=== PATIENT | female | born 1970 | race American Indian/Alaskan Native ===

== ENCOUNTER 2021-02-25 02:24 | Inpatient (IN) | payer BC, OTHER ==
[2021-02-25 03:13] LABS: Hematocrit 29.9 % (30.3-42.9); Hemoglobin 9.7 gm/dl (10.1-14.3); Mean Corpuscular HGB Conc 32 % (30-34); Mean Corpuscular Volume 83 fl (79-97); Platelet Count 392 K/mm3 (140-440)
[2021-02-25 03:17] LABS: Basophils % (Auto) 0.9 % (0.0-1.8); Eosinophils # (Auto) 0.1 K/mm3 (0.0-0.4); Eosinophils % (Auto) 1.6 % (0.0-4.3); Lymphocytes # (Auto) 1.4 K/mm3 (1.2-5.4); Monocytes # (Auto) 0.4 K/mm3 (0.0-0.8); Monocytes % (Auto) 11.7 % (0.0-7.3)
[2021-02-25 03:36] LABS: Albumin 3.1 g/dL (3.9-5); Calcium 8.1 mg/dL (8.4-10.2)
--- NOTE | 2021-02-25 03:47 | XRay Report ---
CHEST 1 VIEW INDICATION / CLINICAL INFORMATION: Chest pain, all over body pain. COMPARISON: None available. FINDINGS: SUPPORT DEVICES: Vas-Cath present with tip in the expected location of the SVC. HEART / MEDIASTINUM: Heart size is borderline enlarged. LUNGS / PLEURA: There is minimal interstitial pulmonary edema with very small left pleural effusion. The lungs are otherwise grossly clear. No pneumothorax. ADDITIONAL FINDINGS: Vascular stent is present in the mediastinum IMPRESSION: 1. Borderline cardiomegaly with minimal interstitial pulmonary edema and very small left pleural effu yudi. Signer Name: Georgia Colon MD Signed: 02/25/2021 3:43 AM Workstation Name: [id number]
[2021-02-25 03:51] LABS: Chol/HDL Ratio 2.78 %
[2021-02-25] MEDS ORDERED: ONDANSETRON 4 MG/2 ML INJ IV ONE (04:44)
[2021-02-25] MEDS ORDERED: MORPHINE 4 MG/1 ML INJ IV ONE (04:44)
[2021-02-25] MEDS ORDERED: oxyCODONE /ACETAMINOPHEN 5-325MG TAB PO ONE (04:44)
--- NOTE | 2021-02-25 04:56 | Emergency Department Report ---
ED N/V/D HPI - General Chief complaint: Pain General Stated complaint: GENERAL PAIN ALL OVER Time Seen by Provider: 02/25/21 04:33 Source: patient, EMS Mode of arrival: Wheelchair Limitations: No Limitations - History of Present Illness Initial comments: CC: " I am a new dialysis patient. I have bone pain. I have been vomiting. I have been unable to keep down my medication." HPI: This is a 42-year-old female with history of hypertension, congestive heart failure, end-stage renal disease on dialysis who presents with severe generalized pain for the past 2 days. She also has had nausea vomiting. She has been unable to tolerate her home medication. She takes oxycodone 10 for generalized pain related to dialysis. Patient started hemodialysis in September. 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 She receives hemodialysis at [facility]. She is currently on Eliquis. complaint: nausea, vomiting, other (Generalized "bone pain") -: Gradual, days(s) (2 days) Description of Vomiting: food contents Associated Abdominal Pain: No Severity: severe Quality: other (Achy bone pain) Consistency: constant Improves with: none Worsens with: none Associated Symptoms: nausea/vomiting, other ("Bone pain") - Related Data Allergies Allergy/AdvReac Type Severity Reaction Status Date / Time Penicillins Allergy Swelling Verified 02/25/21 02:30 ED Review of Systems ROS: Stated complaint: GENERAL PAIN ALL OVER Other details as noted in HPI Comment: All other systems reviewed and negative Constitutional: denies: chills, fever, malaise Respiratory: denies: cough, shortness of breath Cardiovascular: denies: chest pain Gastrointestinal: nausea, vomiting ED Past Medical Hx - Past Medical History Previous Medical History?: Yes Hx Hypertension: Yes Hx Congestive Heart Failure: Yes Hx Kidney Stones: Yes (ESRD on HD M,W,F) - Surgical History Past Surgical History?: Yes Additional Surgical History: r kidney stent - Social History Smoking Status: Never Smoker Substance Use Type: None ED Physical Exam - General Limitations: No Limitations General appearance: alert, in no apparent distress, other (Appears in severe pain, tearful) - Head Head exam: Present: atraumatic, normocephalic - Eye Eye exam: Present: normal appearance - ENT ENT exam: Present: mucous membranes moist - Neck Neck exam: Present: normal inspection, full ROM - Respiratory Respiratory exam: Present: normal lung sounds bilaterally. Absent: respiratory distress, wheezes, rales, rhonchi - Cardiovascular Cardiovascular Exam: Present: regular rate, normal rhythm, normal heart sounds. Absent: systolic murmur, diastolic murmur, rubs, gallop - GI/Abdominal GI/Abdominal exam: Present: soft, normal bowel sounds. Absent: distended, tenderness, guarding, rebound - Extremities Exam Extremities exam: Present: normal inspection - Neurological Exam Neurological exam: Present: alert, oriented X3, normal gait - Psychiatric Psychiatric exam: Present: normal affect, normal mood - Skin Skin exam: Present: warm, dry, intact, normal color. Absent: rash ED Course Vital Signs 02/25/21 02:30 Temperature 97.6 F Pulse Rate 89 Respiratory 18 Rate Blood Pressure 165/82 O2 Sat by Pulse 100 Oximetry ED Medical Decision Making - Lab Data Result diagrams: 02/25/21 03:00 02/25/21 03:00 Laboratory Results - last 24 hr 02/25/21 02/25/21 03:00 03:00 WBC 3.9 L RBC 3.60 L Hgb 9.7 L Hct 29.9 L MCV 83 MCH 27 L MCHC 32 RDW 19.0 H Plt Count 392 Lymph % (Auto) 37.0 H Stephenson % (Auto) 11.7 H Eos % (Auto) 1.6 Baso % (Auto) 0.9 Lymph # (Auto) 1.4 [place] # (Auto) 0.4 Eos # (Auto) 0.1 Baso # (Auto) 0.0 Add Manual Diff Complete Seg Neutrophils % 48.8 Nucleated RBC % Not Reportable Seg Neutrophils # 1.9 WBC Morphology Not Reportable Hypersegmented Neuts Not Reportable Hyposegmented Neuts Not Reportable Hypogranular Neuts Not Reportable Smudge Cells Not Reportable Toxic Granulation Not Reportable Toxic Vacuolation Not Reportable Dohle Bodies Not Reportable Pelger-Huet Anomaly Not Reportable Lee Rods Not Reportable Platelet Estimate Not Reportable Clumped Platelets Not Reportable Plt Clumps, EDTA Not Reportable Large Platelets Not Reportable Giant Platelets Not Reportable Platelet Satelliting Not Reportable Plt Morphology Comment Not Reportable RBC Morphology Not Reportable Dimorphic RBCs Not Reportable Polychromasia Not Reportable Hypochromasia Not Reportable Poikilocytosis Not Reportable Anisocytosis Not Reportable Microcytosis Not Reportable Macrocytosis Not Reportable Spherocytes Not Reportable Pappenheimer Bodies Not Reportable Sickle Cells Not Reportable Target Cells Not Reportable Tear Drop Cells Not Reportable Ovalocytes Not Reportable Helmet Cells Not Reportable Leija-[place] Bodies Not Reportable [place] Rings Not Reportable [place] Cells Not Reportable Bite Cells Not Reportable Crenated Cell Not Reportable Elliptocytes Not Reportable Acanthocytes (Spur) Not Reportable Rouleaux Not Reportable Hemoglobin C Crystals Not Reportable Schistocytes Not Reportable Malaria parasites Not Reportable Myek Bodies Not Reportable Hem Pathologist Commnt Not Reportable Sodium 131 L Potassium 3.8 Chloride 96.1 L Carbon Dioxide 25 Anion Gap 14 BUN 11 Creatinine 2.8 H Estimated GFR 18 BUN/Creatinine Ratio 4 Glucose 74 Calcium 8.1 L Total Bilirubin 0.20 AST 34 ALT 10 Alkaline Phosphatase 127 Troponin T 0.178 H* Total Protein 8.0 Albumin 3.1 L Albumin/Globulin Ratio 0.6 Triglycerides 125 Cholesterol 195 LDL Cholesterol Direct 106 HDL Cholesterol 70 H Cholesterol/HDL Ratio 2.78 - EKG Data -: EKG Interpreted by Ia EKG shows normal: sinus rhythm, axis, intervals, QRS complexes, ST-T waves Rate: tachycardia - EKG Data 02/25/21 04:49 EKG obtained 0346 EKG interpreted by ms Sinus tachycardia rate 100 bpm normal axis prolonged QTC no ST elevation nonisch emic T wave pattern - Radiology Data Radiology results: report reviewed Patient Name: DEBORAH SURESH Gender: Female Date of : 1970 Home Phone: Referring Provider: AMARA, ED Organization: [facility] Accession Number: [id number] Requested Date: February 25, 2021 02:47 Report Status: Final Requested Procedure: 1 Procedure Description: XR chest 1V ap Modality: XR Findings Reporting MD: Georgia Colon Dictation Time: February 25, 2021 02:43 Sales Enablement Consultant: Not available Telephone Directory Deliverer Date: CHEST 1 VIEW INDICATION / CLINICAL INFORMATION: Chest pain, all over body pain. COMPARISON: None available. FINDINGS: SUPPORT DEVICES: Vas-Cath present with tip in the expected location of the SVC. HEART / MEDIASTINUM: Heart size is borderline enlarged. LUNGS / PLEURA: There is minimal interstitial pulmonary edema with very small left pleural effusion. The lungs are otherwise grossly clear. No pneumothorax. ADDITIONAL FINDINGS: Vascular stent is present in the mediastinum IMPRESSION: 1. Borderline cardiomegaly with minimal interstitial pulmonary edema and very small left pleural effusion. Signer Name: Georgia Colon MD Signed: 02/25/2021 2:43 AM Workstation Name: [email or web address] - Medical Decision Making 1. Uremic Syndrome: Patient is new to hemodialysis. I suspect that her generalized pain is due to uremic syndrome including nausea vomiting generalized pain. Patient received supportive care with IV antiemetic and IV analgesics emergency department. 2. Elevated troponin in ESRD: will need serial troponin values to rule out AMI, patient is not currently exhibiting typical signs and symptoms of ACS Admitted to hospitalist service for further treatment and evaluation Critical care attestation.: If time is entered above; I have spent that time in minutes in the direct care of this critically ill patient, excluding procedure time. ED Disposition Clinical Impression: Uremic syndrome, ESRD on hemodialysis, Generalized pain, Intractable vomiting with nausea Disposition: 09 OP ADMIT IP TO THIS HOSP Is pt being admited?: Yes Does the pt Need Aspirin: No Condition: Stable
[2021-02-25] MEDS ORDERED: ACETAMINOPHEN 325 MG TAB PO PRN (05:06)
[2021-02-25] MEDS ORDERED: ALUM-MAG HYDROXIDE-SIMETHICONE 200-200-20MG/5ML ORAL LIQD 30 ML PO PRN (05:06)
[2021-02-25] MEDS ORDERED: MAGNESIUM HYDROXIDE (MOM) ORAL LIQD UDC PO PRN (05:06)
--- NOTE | 2021-02-25 05:14 | History and Physical Report ---
History of Present Illness Date of examination: 02/25/21 Date of admission: 02/25/21 04:42 Chief complaint: nausea and vomiting History of present illness: HPI: This is a 42-year-old female with history of hypertension, congestive heart failure, end-stage renal disease on dialysis who presents with severe generalized pain for the past 2 days. She also has had nausea vomiting. She has been unable to tolerate her home medication. She takes oxycodone 10 for generalized pain related to dialysis. Patient started hemodialysis in September. 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 She receives hemodialysis at [facility]. ED work-up showed WBC 3.9, hemoglobin 9.7, platelets 392, sodium 131, potassium 3.8, creatinine 2.8, serum glucose 74 and calcium 8.1. X-ray of the chest showed borderline cardiomegaly with minimal interstitial pulmonary edema and a very small left pleural effusion. Patient seen at bedside alert oriented x3. Patient complaining of generalized pain nausea and vomiting. She said that she is a new onset dialysis patient she has a permacath to right upper side she said was placed in [facility] November of this year. I reviewed patient lab medical record and vital signs. Patient blood pressure elevated home antihypertensive started. Business Banker consulted Past History Past Medical History: ESRD, hypertension, renal failure Social history: no significant social history, lives with family Family history: hypertension Medications and Allergies Allergies Allergy/AdvReac Type Severity Reaction Status Date / Time Penicillins Allergy Swelling Verified 02/25/21 02:30 Active Meds: Active Medications Acetaminophen (Acetaminophen 325 Mg Tab) 650 mg PO Q4H PRN PRN Reason: Pain MILD(1-3)/Fever >100.5/DE LEÓN Al Hydrox/Mg Hydrox/Simethicone (Alum-Mag Hydroxide-Simethicone [id number]/5ml Oral Liqd 30 Ml) 30 ml PO Q4H PRN PRN Reason: Indigestion Magnesium Hydroxide (Magnesium Hydroxide (Mom) Oral Liqd Udc) 30 ml PO Q4H PRN PRN Reason: Constipation Ondansetron HCl (Ondansetron 4 Mg/2 Ml Inj) 4 mg IV Q8H PRN PRN Reason: Nausea And Vomiting Sodium Chloride (Sodium Chloride 0.9% 10 Ml Flush Syringe) 10 ml IV BID LILI Sodium Chloride (Sodium Chloride 0.9% 10 Ml Flush Syringe) 10 ml IV PRN PRN PRN Reason: LINE FLUSH Review of Systems Constitutional: weakness, malaise Ears, nose, mouth and throat: no epistaxis, no bleeding gums Respiratory: no congestion, no wheezing Gastrointestinal: abdominal pain, nausea, vomiting, no melena Genitourinary Female: no menorrhagia Rectal: no hemorrhoids Musculoskeletal: no neck stiffness Integumentary: no rash, no pruritis Neurological: no head injury, no transient paralysis Psychiatric: no memory loss Hematologic/Lymphatic: no easy bruising, no easy bleeding Allergic/Immunologic: no urticaria Exam - Constitutional Vitals: Temp Pulse Resp BP Pulse Ox 97.6 F 89 18 165/82 100 02/25/21 02:30 02/25/21 02:30 02/25/21 02:30 02/25/21 02:30 02/25/21 02:30 General appearance: Present: mild distress, cachectic - EENT Eyes: Present: PERRL ENT: hearing intact, clear oral mucosa - Neck Neck: Present: supple, normal ROM - Respiratory Respiratory effort: normal Respiratory: bilateral: CTA - Cardiovascular Heart Sounds: Present: S1 & S2. Absent: rub, click - Extremities Extremities: pulses symmetrical, No edema Peripheral Pulses: within normal limits - Abdominal General gastrointestinal: Present: soft, non-tender, non-distended, normal bowel sounds Female genitourinary: Present: normal - Integumentary Integumentary: Present: clear, warm, dry - Musculoskeletal Musculoskeletal: strength equal bilaterally, generalized weakness, other (generalized pain) - Psychiatric Psychiatric: appropriate mood/affect, intact judgment & insight, cooperative - Neurologic Neurologic: CNII-XII intact, moves all extremities - Allied Health Allied health notes reviewed: nursing HEART Score - HEART Score Troponin: Troponin T 0.178 ng/mL (0.00-0.029) H* 02/25/21 03:00 Results - Labs CBC & Chem 7: 02/25/21 03:00 02/25/21 03:00 Labs: Abnormal lab results 02/25/21 02/25/21 Range/Units 03:00 03:00 WBC 3.9 L (4.5-11.0) K/mm3 RBC 3.60 L (3.65-5.03) M/mm3 Hgb 9.7 L (10.1-14.3) gm/dl Hct 29.9 L (30.3-42.9) % MCH 27 L (28-32) pg RDW 19.0 H (13.2-15.2) % Lymph % (Auto) 37.0 H (13.4-35.0) % [place] % (Auto) 11.7 H (0.0-7.3) % Sodium 131 L (137-145) mmol/L Chloride 96.1 L (98-107) mmol/L Creatinine 2.8 H (0.6-1.2) mg/dL Calcium 8.1 L (8.4-10.2) mg/dL Troponin T 0.178 H* (0.00-0.029) ng/mL Albumin 3.1 L (3.9-5) g/dL HDL Cholesterol 70 H (40-59) mg/dL Assessment and Plan - Patient Problems (1) Intractable vomiting with nausea Current Visit: Yes Status: Acute Plan to address problem: Antiemetic with Zofran Monitor electrolytes (2) ESRD on hemodialysis Current Visit: Yes Status: Acute Plan to address problem: Business Banker consulted Hemodialysis per renal Patient has right subclavian permacath (3) Generalized pain Current Visit: Yes Status: Acute Plan to address problem: Pain management as needed Patient reports generalized pain on my assessment pain level 10/10 (4) Hypertension Current Visit: Yes Status: Acute Plan to address problem: Monitor blood pressure Resume home amlodipine and hydralazine As needed hydralazine (5) Anemia Current Visit: Yes Status: Acute Plan to address problem: Likely secondary to kidney disease Monitor H&H and will transfuse packed red blood cells if H&H is less than 7 Iron and multivitamin supplements. (6) DVT prophylaxis Current Visit: Yes Status: Acute Plan to address problem: Subcutaneous heparin
[2021-02-25] MEDS ORDERED: SENNOSIDES 8.6 MG TAB PO PRN (06:30)
[2021-02-25] MEDS ORDERED: ONDANSETRON 4 MG/2 ML INJ IV PRN (06:30)
[2021-02-25] MEDS ORDERED: traZODone 50 MG TAB PO PRN (06:34)
[2021-02-25] MEDS: MORPHINE 2 MG/1 ML INJ IV PRN ×4 (06:42→19:50)
[2021-02-25] MEDS: hydrALAZINE 100 MG TAB PO SCH ×3 (07:02→19:51)
--- NOTE | 2021-02-25 08:23 | Progress Note ---
Assessment and Plan Assessment and plan: Intractable nausea and vomiting ESRD on hemodialysis Generalized pain Hypertension Anemia of chronic disease 02/25/2021. GI consultation pending for intractable nausea and vomiting. History Interval history: No new issues since admission Hospitalist Physical - Constitutional Vitals: Temp Pulse Resp BP Pulse Ox 97.9 F 97 H 18 159/89 94 02/25/21 07:39 02/25/21 07:39 02/25/21 07:39 02/25/21 07:39 02/25/21 07:39 General appearance: Present: mild distress, cachectic - EENT Eyes: Present: PERRL, EOM intact ENT: hearing intact, clear oral mucosa, dentition normal - Neck Neck: Present: supple, normal ROM - Respiratory Respiratory effort: normal Respiratory: bilateral: CTA - Cardiovascular Rhythm: regular Heart Sounds: Present: S1 & S2. Absent: gallop, rub - Extremities Extremities: no ischemia, No edema, Full ROM - Abdominal General gastrointestinal: soft, non-tender, non-distended, normal bowel sounds - Integumentary Integumentary: Present: clear, warm, dry - Neurologic Neurologic: CNII-XII intact, moves all extremities HEART Score - HEART Score Troponin: Troponin T 0.162 ng/mL (0.00-0.029) H* 02/25/21 05:44 Results - Labs CBC & Chem 7: 02/25/21 03:00 02/25/21 03:00 Labs: Laboratory Last Values WBC 3.9 K/mm3 (4.5-11.0) L 02/25/21 03:00 RBC 3.60 M/mm3 (3.65-5.03) L 02/25/21 03:00 Hgb 9.7 gm/dl (10.1-14.3) L 02/25/21 03:00 Hct 29.9 % (30.3-42.9) L 02/25/21 03:00 MCV 83 fl (79-97) 02/25/21 03:00 MCH 27 pg (28-32) L 02/25/21 03:00 MCHC 32 % (30-34) 02/25/21 03:00 RDW 19.0 % (13.2-15.2) H 02/25/21 03:00 Plt Count 392 K/mm3 (140-440) 02/25/21 03:00 Lymph % (Auto) 37.0 % (13.4-35.0) H 02/25/21 03:00 [place] % (Auto) 11.7 % (0.0-7.3) H 02/25/21 03:00 Eos % (Auto) 1.6 % (0.0-4.3) 02/25/21 03:00 Baso % (Auto) 0.9 % (0.0-1.8) 02/25/21 03:00 Lymph # (Auto) 1.4 K/mm3 (1.2-5.4) 02/25/21 03:00 [place] # (Auto) 0.4 K/mm3 (0.0-0.8) 02/25/21 03:00 Eos # (Auto) 0.1 K/mm3 (0.0-0.4) 02/25/21 03:00 Baso # (Auto) 0.0 K/mm3 (0.0-0.1) 02/25/21 03:00 Add Manual Diff Complete 02/25/21 03:00 Seg Neutrophils % 48.8 % (40.0-70.0) 02/25/21 03:00 Nucleated RBC % Not Reportable 02/25/21 03:00 Seg Neutrophils # 1.9 K/mm3 (1.8-7.7) 02/25/21 03:00 WBC Morphology Not Reportable 02/25/21 03:00 Hypersegmented Neuts Not Reportable 02/25/21 03:00 Hyposegmented Neuts Not Reportable 02/25/21 03:00 Hypogranular Neuts Not Reportable 02/25/21 03:00 Smudge Cells Not Reportable 02/25/21 03:00 Toxic Granulation Not Reportable 02/25/21 03:00 Toxic Vacuolation Not Reportable 02/25/21 03:00 Dohle Bodies Not Reportable 02/25/21 03:00 Pelger-Huet Anomaly Not Reportable 02/25/21 03:00 Lee Rods Not Reportable 02/25/21 03:00 Platelet Estimate Not Reportable 02/25/21 03:00 Clumped Platelets Not Reportable 02/25/21 03:00 Plt Clumps, EDTA Not Reportable 02/25/21 03:00 Large Platelets Not Reportable 02/25/21 03:00 Giant Platelets Not Reportable 02/25/21 03:00 Platelet Satelliting Not Reportable 02/25/21 03:00 Plt Morphology Comment Not Reportable 02/25/21 03:00 RBC Morphology Not Reportable 02/25/21 03:00 Dimorphic RBCs Not Reportable 02/25/21 03:00 Polychromasia Not Reportable 02/25/21 03:00 Hypochromasia Not Reportable 02/25/21 03:00 Poikilocytosis Not Reportable 02/25/21 03:00 Anisocytosis Not Reportable 02/25/21 03:00 Microcytosis Not Reportable 02/25/21 03:00 Macrocytosis Not Reportable 02/25/21 03:00 Spherocytes Not Reportable 02/25/21 03:00 Pappenheimer Bodies Not Reportable 02/25/21 03:00 Sickle Cells Not Reportable 02/25/21 03:00 Target Cells Not Reportable 02/25/21 03:00 Tear Drop Cells Not Reportable 02/25/21 03:00 Ovalocytes Not Reportable 02/25/21 03:00 Helmet Cells Not Reportable 02/25/21 03:00 Leija-[place] Bodies Not Reportable 02/25/21 03:00 [place] Rings Not Reportable 02/25/21 03:00 [place] Cells Not Reportable 02/25/21 03:00 Bite Cells Not Reportable 02/25/21 03:00 Crenated Cell Not Reportable 02/25/21 03:00 Elliptocytes Not Reportable 02/25/21 03:00 Acanthocytes (Spur) Not Reportable 02/25/21 03:00 Rouleaux Not Reportable 02/25/21 03:00 Hemoglobin C Crystals Not Reportable 02/25/21 03:00 Schistocytes Not Reportable 02/25/21 03:00 Malaria parasites Not Reportable 02/25/21 03:00 [place] Bodies Not Reportable 02/25/21 03:00 Hem Pathologist Commnt Not Reportable 02/25/21 03:00 Sodium 131 mmol/L (137-145) L 02/25/21 03:00 Potassium 3.8 mmol/L (3.6-5.0) 02/25/21 03:00 Chloride 96.1 mmol/L (98-107) L 02/25/21 03:00 Carbon Dioxide 25 mmol/L (22-30) 02/25/21 03:00 Anion Gap 14 mmol/L 02/25/21 03:00 BUN 11 mg/dL (7-17) 02/25/21 03:00 Creatinine 2.8 mg/dL (0.6-1.2) H 02/25/21 03:00 Estimated GFR 18 ml/min 02/25/21 03:00 BUN/Creatinine Ratio 4 % 02/25/21 03:00 Glucose 74 mg/dL (65-100) 02/25/21 03:00 Calcium 8.1 mg/dL (8.4-10.2) L 02/25/21 03:00 Total Bilirubin 0.20 mg/dL (0.1-1.2) 02/25/21 03:00 AST 34 units/L (5-40) 02/25/21 03:00 ALT 10 units/L (7-56) 02/25/21 03:00 Alkaline Phosphatase 127 units/L (35-129) 02/25/21 03:00 Troponin T 0.162 ng/mL (0.00-0.029) H* 02/25/21 05:44 Total Protein 8.0 g/dL (6.3-8.2) 02/25/21 03:00 Albumin 3.1 g/dL (3.9-5) L 02/25/21 03:00 Albumin/Globulin Ratio 0.6 % 02/25/21 03:00 Triglycerides 125 mg/dL (2-149) 02/25/21 03:00 Cholesterol 195 mg/dL (50-199) 02/25/21 03:00 LDL Cholesterol Direct 106 mg/dL (50-130) 02/25/21 03:00 HDL Cholesterol 70 mg/dL (40-59) H 02/25/21 03:00 Cholesterol/HDL Ratio 2.78 % 02/25/21 03:00 Active Medications - Current Medications Current Medications: Generic Name Dose Route Start Last Admin Trade Name Freq PRN Reason Stop Dose Admin Acetaminophen 650 mg 02/25/21 05:06 Acetaminophen 325 Mg Tab PO Q4H PRN Pain MILD(1-3)/Fever >100.5/DE LEÓN Al Hydrox/Mg Hydrox/Simethicone 30 ml 06/09/21 05:06 Alum-Mag Hydroxide-Simethicone [id number] Oral Liqd 30 Ml PO Q4H PRN Indigestion Amlodipine Besylate 10 mg 02/25/21 10:00 Amlodipine 10 Mg Tab PO QDAY [facility] Ferrous Sulfate 325 mg 02/25/21 10:00 Ferrous Sulfate 325 Mg Tab PO QDAY [facility] Heparin Sodium (Porcine) 5,000 unit 02/25/21 10:00 Heparin 5,000 Unit/1 Ml Vial SUB-Q Q12HR [facility] Hydralazine HCl 5 mg 02/25/21 06:30 Hydralazine 20 Mg/1 Ml Inj IV Q4HR PRN Hypertension Hydralazine HCl 100 mg 02/25/21 08:00 02/25/21 07:02 Hydralazine 100 Mg Tab PO 100 mg TID [facility] Administration Magnesium Hydroxide 30 ml 02/25/21 05:06 Magnesium Hydroxide (Mom) Oral Liqd Udc PO Q4H PRN Constipation Morphine Sulfate 2 mg 02/25/21 06:26 02/25/21 06:42 Morphine 2 Mg/1 Ml Inj IV 2 mg Q4H PRN Administration Chest Pain unrelieved by NTG Multivitamins 1 each 02/25/21 10:00 Multivitamins ,Therapeutic Tab PO QDAY [facility] Ondansetron HCl 4 mg 02/25/21 05:06 Ondansetron 4 Mg/2 Ml Inj IV Q8H PRN Nausea And Vomiting Oxycodone/Acetaminophen 1 tab 02/25/21 06:26 Oxycodone /Acetaminophen 5-325mg Tab PO Q6H PRN Pain, Moderate (4-6) Senna 8.6 mg 02/25/21 06:30 Sennosides 8.6 Mg Tab PO Q12HR PRN Constipation Sodium Chloride 10 ml 02/25/21 10:00 Sodium Chloride 0.9% 10 Ml Flush Syringe IV BID LILI Sodium Chloride 10 ml 02/25/21 05:06 Sodium Chloride 0.9% 10 Ml Flush Syringe IV PRN PRN LINE FLUSH Trazodone HCl 50 mg 02/25/21 06:34 Trazodone 50 Mg Tab PO QHS PRN Insomnia
--- NOTE | 2021-02-25 09:02 | Gastroenterology Consultation ---
History of Present Illness - Reason for Consult Consult date: 02/25/21 Nausea and vomiting Requesting physician: [place] GARCIA - History of Present Illness This is a pleasant 50-year-old female, medical history as below, who presents with nausea and vomiting. She reports having severe nausea and vomiting since starting dialysis around November of this year. Intractable, no alleviating factors worse with dialysis and eating, constant, daily, stable, duration months. denies GI eval in past She had a CT chest abdomen and pelvis scan January 28 at [facility] which showed: IMPRESSION: Thickened gastric wall. Query gastritis as prior. Asymmetric breast tissue, marked breast skin thickening as visualized on the left. Correlate with mammography. Moderate anasarca. Negative for pulmonary thromboembolism. Notable findings include diffuse groundglass opacities with bilateral pleural effusions suggesting pulmonary edema/volume overload, atypical pneumonia not excluded. CT scan January 3 IMPRESSION: 1. Diffuse submucosal wall thickening of the stomach. This can be related to inflammatory or infectious or infiltrative process. Once clinically feasible endoscopy is recommended. 2. Minimal stranding surrounding the gallbladder. Right upper quadrant ultrasound is recommended for further characterization. Ultrasound gallbladder May 3 Tiny amount of pericholecystic fluid without evidence of gallstones or positive sonographic Paredes sign MRCP May 3 1. Inflammatory changes centered around the gastric antrum and proximal duodenum, with associated severe gastric wall thickening. Findings are nonspecific but favor acute gastritis as a cause of epigastric pain. 2. Cholelithiasis but no clear evidence of acute cholecystitis. 3. No evidence of choledocholithiasis. 4. Inflammatory changes involving the left kidney and collecting system with a double-J ureteral stent in place. Acute or chronic pyelonephritis could cause this appearance. CT scan January 01 1. Small bilateral pleural effusion with bibasilar consolidation. 2. Mild hydronephrosis with heterogeneous attenuation of the collecting system which is nonspecific but can be related to blood products in the correct clinical setting. 3. Subcapsular focus of air in the inferior pole of the left kidney which can be related to recent biopsy. 4. Anasarca. 5. Cholelithiasis. Obtained/updated/reviewed patient's current medications Past History Past Medical History: ESRD, hypertension, renal failure, CHF Social history: no significant social history, lives with family Family history: hypertension home meds per recent dc summary from [facility]: Medication Information acetaminophen (TYLENOL) 500 mg tablet Take 500 mg by mouth every 6 (six) hours as needed for Pain. ALPRAZolam (XANAX) 1 mg tablet Take 1 mg by mouth 2 (two) times daily as needed for Anxiety. amLODIPine (NORVASC) 10 mg tablet Take 1 tablet (10 mg total) by mouth daily. apixaban (ELIQUIS) 5 mg tablet Take 10 mg by mouth 2 (two) times daily for 4 days. apixaban (ELIQUIS) 5 mg tablet Take 5 mg by mouth 2 (two) times daily. calcitRIOL (ROCALTROL) 0.25 mcg capsule Take 2 capsules (0.5 mcg total) by mouth daily. cetirizine (ZYRTEC) 10 MG tablet Take 1 tablet (10 mg total) by mouth daily. fluticasone propionate (FLONASE) 50 mcg/actuation nasal spray 1 spray by Nasal route daily. metoprolol tartrate (LOPRESSOR) 50 MG tablet Take 1 tablet (50 mg total) by mouth 2 (two) times daily. mirtazapine (REMERON) 15 MG tablet Take 1 tablet (15 mg total) by mouth nightly. oxyCODONE (ROXICODONE) 10 mg tablet Take 1 tablet (10 mg total) by mouth every 6 (six) hours as needed for Pain. pantoprazole (PROTONIX) 40 MG tablet Take 1 tablet (40 mg total) by mouth 2 (two) times a day. promethazine (PHENERGAN) 12.5 MG tablet Take 1 tablet (12.5 mg total) by mouth every 6 (six) hours as needed for Nausea. sertraline (ZOLOFT) 25 MG tablet Take 1 tablet (25 mg total) by mouth daily. simethicone (MYLICON) 80 MG chewable tablet Take 1 tablet (80 mg total) by mouth every 6 (six) hours as needed for Flatulence. tamsulosin (FLOMAX) 0.4 mg Cap Take 1 capsule (0.4 mg total) by mouth nightly. Past History Past Medical History: ESRD, hypertension, renal failure Social history: no significant social history, lives with family Family history: hypertension Medications and Allergies Allergies Allergy/AdvReac Type Severity Reaction Status Date / Time Penicillins Allergy Swelling Verified 02/25/21 02:30 Active Meds: Active Medications Acetaminophen (Acetaminophen 325 Mg Tab) 650 mg PO Q4H PRN PRN Reason: Pain MILD(1-3)/Fever >100.5/DE LEÓN Al Hydrox/Mg Hydrox/Simethicone (Alum-Mag Hydroxide-Simethicone [id number]/5ml Oral Liqd 30 Ml) 30 ml PO Q4H PRN PRN Reason: Indigestion Amlodipine Besylate (Amlodipine 10 Mg Tab) 10 mg PO QDAY [facility] Ferrous Sulfate (Ferrous Sulfate 325 Mg Tab) 325 mg PO QDAY [facility] Heparin Sodium (Porcine) (Heparin 5,000 Unit/1 Ml Vial) 5,000 unit SUB-Q Q12HR [facility] Hydralazine HCl (Hydralazine 20 Mg/1 Ml Inj) 5 mg IV Q4HR PRN PRN Reason: Hypertension Hydralazine HCl (Hydralazine 100 Mg Tab) 100 mg PO TID [facility] Last Admin: 02/25/21 07:02 Dose: 100 mg Documented by: Magnesium Hydroxide (Magnesium Hydroxide (Mom) Oral Liqd Udc) 30 ml PO Q4H PRN PRN Reason: Constipation Morphine Sulfate (Morphine 2 Mg/1 Ml Inj) 2 mg IV Q4H PRN PRN Reason: Chest Pain unrelieved by NTG Last Admin: 02/25/21 06:42 Dose: 2 mg Documented by: Multivitamins (Multivitamins ,Therapeutic Tab) 1 each PO QDAY [facility] Ondansetron HCl (Ondansetron 4 Mg/2 Ml Inj) 4 mg IV Q8H PRN PRN Reason: Nausea And Vomiting Oxycodone/Acetaminophen (Oxycodone /Acetaminophen 5-325mg Tab) 1 tab PO Q6H PRN PRN Reason: Pain, Moderate (4-6) Senna (Sennosides 8.6 Mg Tab) 8.6 mg PO Q12HR PRN PRN Reason: Constipation Sodium Chloride (Sodium Chloride 0.9% 10 Ml Flush Syringe) 10 ml IV BID LILI Sodium Chloride (Sodium Chloride 0.9% 10 Ml Flush Syringe) 10 ml IV PRN PRN PRN Reason: LINE FLUSH Trazodone HCl (Trazodone 50 Mg Tab) 50 mg PO QHS PRN PRN Reason: Insomnia Review of Systems - Review of Systems All systems: negative (10 Systems reviewed and negative except as mentioned above in the history of present illness) Exam - Constitutional Vital Signs: Temp Pulse Resp BP Pulse Ox 97.9 F 97 H 18 159/89 94 02/25/21 07:39 02/25/21 07:39 02/25/21 07:39 02/25/21 07:39 02/25/21 07:39 General appearance: other (mildly uncomfortable) - EENT Eyes: EOM intact ENT: hearing intact - Neck Neck: supple - Respiratory Respiratory effort: normal - Cardiovascular Rhythm: regular - Gastrointestinal General gastrointestinal: Present: soft, tender, normal bowel sounds - Integumentary Integumentary: Present: dry - Neurologic Neurological: alert and oriented x3 - Psychiatric Psychiatric: appropriate mood/affect - Labs CBC & Chem 7: 02/25/21 03:00 02/25/21 03:00 Lab Results: Laboratory Results - last 24 hr 02/25/21 02/25/21 02/25/21 03:00 03:00 05:44 WBC 3.9 L RBC 3.60 L Hgb 9.7 L Hct 29.9 L MCV 83 MCH 27 L MCHC 32 RDW 19.0 H Plt Count 392 Lymph % (Auto) 37.0 H [place] % (Auto) 11.7 H Eos % (Auto) 1.6 Baso % (Auto) 0.9 Lymph # (Auto) 1.4 [place] # (Auto) 0.4 Eos # (Auto) 0.1 Baso # (Auto) 0.0 Add Manual Diff Complete Seg Neutrophils % 48.8 Nucleated RBC % Not Reportable Seg Neutrophils # 1.9 WBC Morphology Not Reportable Hypersegmented Neuts Not Reportable Hyposegmented Neuts Not Reportable Hypogranular Neuts Not Reportable Smudge Cells Not Reportable Toxic Granulation Not Reportable Toxic Vacuolation Not Reportable Dohle Bodies Not Reportable Pelger-Huet Anomaly Not Reportable Lee Rods Not Reportable Platelet Estimate Not Reportable Clumped Platelets Not Reportable Plt Clumps, EDTA Not Reportable Large Platelets Not Reportable Giant Platelets Not Reportable Platelet Satelliting Not Reportable Plt Morphology Comment Not Reportable RBC Morphology Not Reportable Dimorphic RBCs Not Reportable Polychromasia Not Reportable Hypochromasia Not Reportable Poikilocytosis Not Reportable Anisocytosis Not Reportable Microcytosis Not Reportable Macrocytosis Not Reportable Spherocytes Not Reportable Pappenheimer Bodies Not Reportable Sickle Cells Not Reportable Target Cells Not Reportable Tear Drop Cells Not Reportable Ovalocytes Not Reportable Helmet Cells Not Reportable Leija-Wilcox Bodies Not Reportable [place] Rings Not Reportable [place] Cells Not Reportable Bite Cells Not Reportable Crenated Cell Not Reportable Elliptocytes Not Reportable Acanthocytes (Spur) Not Reportable Rouleaux Not Reportable Hemoglobin C Crystals Not Reportable Schistocytes Not Reportable Malaria parasites Not Reportable Myke Bodies Not Reportable Hem Pathologist Commnt Not Reportable Sodium 131 L Potassium 3.8 Chloride 96.1 L Carbon Dioxide 25 Anion Gap 14 BUN 11 Creatinine 2.8 H Estimated GFR 18 BUN/Creatinine Ratio 4 Glucose 74 Calcium 8.1 L Total Bilirubin 0.20 AST 34 ALT 10 Alkaline Phosphatase 127 Troponin T 0.178 H* 0.162 H* Total Protein 8.0 Albumin 3.1 L Albumin/Globulin Ratio 0.6 Triglycerides 125 Cholesterol 195 LDL Cholesterol Direct 106 HDL Cholesterol 70 H Cholesterol/HDL Ratio 2.78 Assessment and Plan Given severity of the patient's symptoms coupled with her anemia and multiple abnormal CAT scans indicating gastric pathology, inpatient EGD for further evaluation is prudent. Differential diagnosis includes malignancy, peptic ulcer disease severe gastritis, etc. In the meantime starting patient on twice daily PPI N.p.o. past midnight We will discuss with endoscopy team tomorrow timing for the procedure - Patient Problems (1) Abdominal pain Current Visit: Yes Status: Acute (2) Abnormal CT of the abdomen Current Visit: Yes Status: Acute (3) Anemia Current Visit: Yes Status: Acute (4) Intractable vomiting with nausea Current Visit: Yes Status: Acute
--- NOTE | 2021-02-25 09:14 | Consultation ---
History of Present Illness - Reason for Consult Consult date: 02/25/21 end stage renal disease - History of Present Illness This is a 50 year-old woman with ESRD who presents for intractable ashley sea/vomiting, generalized pain Patient usually dialyzes MWF at [facility]. Last HD 02/23. Denies any recent issues with HD, including dizziness, lightheadedness, cramping, chest pain on HD. Currently, patient notes generalized pain and nausea/vomiting which has been going on for some time. Denies any other issues including dyspnea, edema, access issues, headaches. Past History Past Medical History: ESRD, hypertension, renal failure Social history: no significant social history, lives with family Family history: hypertension Medications and Allergies Allergies Allergy/AdvReac Type Severity Reaction Status Date / Time Penicillins Allergy Swelling Verified 02/25/21 02:30 Active Meds: Active Medications Acetaminophen (Acetaminophen 325 Mg Tab) 650 mg PO Q4H PRN PRN Reason: Pain MILD(1-3)/Fever >100.5/DE LE[place]N Al Hydrox/Mg Hydrox/Simethicone (Alum-Mag Hydroxide-Simethicone 019-430-78nm/5ml Oral Liqd 30 Ml) 30 ml PO Q4H PRN PRN Reason: Indigestion Amlodipine Besylate (Amlodipine 10 Mg Tab) 10 mg PO QDAY [facility] Ferrous Sulfate (Ferrous Sulfate 325 Mg Tab) 325 mg PO QDAY [facility] Heparin Sodium (Porcine) (Heparin 5,000 Unit/1 Ml Vial) 5,000 unit SUB-Q Q12HR [facility] Hydralazine HCl (Hydralazine 20 Mg/1 Ml Inj) 5 mg IV Q4HR PRN PRN Reason: Hypertension Hydralazine HCl (Hydralazine 100 Mg Tab) 100 mg PO TID [facility] Last Admin: 02/25/21 07:02 Dose: 100 mg Documented by: Sodium Chloride (Nacl 0.9%) 100 mls @ 999 mls/hr IV RANDY PRN PRN Reason: Hypotension Magnesium Hydroxide (Magnesium Hydroxide (Mom) Oral Liqd Udc) 30 ml PO Q4H PRN PRN Reason: Constipation Morphine Sulfate (Morphine 2 Mg/1 Ml Inj) 2 mg IV Q4H PRN PRN Reason: Chest Pain unrelieved by NTG Last Admin: 02/25/21 06:42 Dose: 2 mg Documented by: Multivitamins (Multivitamins ,Therapeutic Tab) 1 each PO QDAY LILI Ondansetron HCl (Ondansetron 4 Mg/2 Ml Inj) 4 mg IV Q8H PRN PRN Reason: Nausea And Vomiting Oxycodone/Acetaminophen (Oxycodone /Acetaminophen 5-325mg Tab) 1 tab PO Q6H PRN PRN Reason: Pain, Moderate (4-6) Senna (Sennosides 8.6 Mg Tab) 8.6 mg PO Q12HR PRN PRN Reason: Constipation Sodium Chloride (Sodium Chloride 0.9% 10 Ml Flush Syringe) 10 ml IV BID LILI Sodium Chloride (Sodium Chloride 0.9% 10 Ml Flush Syringe) 10 ml IV PRN PRN PRN Reason: LINE FLUSH Trazodone HCl (Trazodone 50 Mg Tab) 50 mg PO QHS PRN PRN Reason: Insomnia Review of Systems All systems: negative (as per HPI) Exam - Vital Signs Vital signs: Vital Signs Temp Pulse Resp BP Pulse Ox 97.6 F 89 18 165/82 100 02/25/21 02:30 02/25/21 02:30 02/25/21 02:30 02/25/21 02:30 02/25/21 02:30 - Physical Exam Narrative exam: Constitutional: no acute distress Head: NC/AT Neck: supple Lungs: clear to auscultation CV: RRR, no M/R/G Abdomen: soft, non-tender, bowel sounds present Back: nontender Extremities: no edema, pulses WNL, CVC noted Skin: intact Neuro: no focal deficits, alert and oriented x4 Results - Lab Results 02/25/21 03:00 02/25/21 03:00 Most recent lab results Calcium 8.1 mg/dL (8.4-10.2) L 02/25/21 03:00 Assessment and Plan This is a 50 year old woman who presents with nausea/vomiting, pain # ESRD: usually HD MWF, hold HD today given stable labs and volume status. Plan for next HD prn, patient does not feel well enough for HD today - daily labs - renally dose meds - avoid nephrotoxins - renal diet # Mild Hyponatremia: adjust dialysate prn, likely not contributing to acute symptoms # Anemia: last hemoglobin 9.7, ESAs with HD prn # HTN: UF as tolerated. BP high this AM # Secondary Hyperparathyroidism: continue home binders as needed # Nausea/vomiting: suspect less likely related to uremia as she has been compliant with HD and current BUN of 11. Appreciate GI consult
[2021-02-25] MEDS ORDERED: SODIUM CHLORIDE 0.9% 100 ML IV PRN (09:30)
[2021-02-25] MEDS: amLODIPine 10 MG TAB PO SCH (09:33)
[2021-02-25] MEDS: FERROUS SULFATE 325 MG TAB PO SCH (09:34)
[2021-02-25] MEDS: HEPARIN 5,000 UNIT/1 ML VIAL SUB-Q SCH ×2 (09:34→21:12)
[2021-02-25] MEDS: MULTIVITAMINS ,THERAPEUTIC TAB PO SCH (09:34)
[2021-02-25] MEDS: ONDANSETRON 4 MG/2 ML INJ IV PRN ×2 (09:47→19:46)
[2021-02-25] MEDS: METOCLOPRAMIDE 10 MG/2 ML INJ IV PRN (14:26)
[2021-02-25] MEDS: hydrALAZINE 20 MG/1 ML INJ IV PRN (19:51)
[2021-02-25] MEDS: PANTOPRAZOLE 40 MG TAB PO SCH (21:12)
[2021-02-26] MEDS: METOCLOPRAMIDE 10 MG/2 ML INJ IV PRN ×2 (00:47→21:42)
[2021-02-26] MEDS: MORPHINE 2 MG/1 ML INJ IV PRN ×5 (00:49→21:41)
[2021-02-26] MEDS: hydrALAZINE 20 MG/1 ML INJ IV PRN ×3 (00:55→14:17)
[2021-02-26] MEDS ORDERED: ZOLPIDEM 5 MG TAB PO ONE (01:30)
[2021-02-26 05:10] LABS: Basophils % (Auto) 0.6 % (0.0-1.8); Hematocrit 28.4 % (30.3-42.9); Lymphocytes # (Auto) 1.6 K/mm3 (1.2-5.4); Lymphocytes % (Auto) 40.7 % (13.4-35.0); Mean Corpuscular HGB Conc 32 % (30-34); Mean Corpuscular Volume 84 fl (79-97); Monocytes # (Auto) 0.5 K/mm3 (0.0-0.8); Monocytes % (Auto) 13.3 % (0.0-7.3); Platelet Count 371 K/mm3 (140-440); Red Blood Count 3.39 M/mm3 (3.65-5.03); Red Cell Distribution Width 18.5 % (13.2-15.2)
[2021-02-26 05:25] LABS: Albumin 2.8 g/dL (3.9-5); BUN/Creatinine Ratio 4; Blood Urea Nitrogen 14 mg/dL (7-17); Calcium 8.4 mg/dL (8.4-10.2); Hemolysis Index 0
[2021-02-26 05:26] LABS: Alanine Aminotransferase < 5 units/L (7-56)
[2021-02-26] MEDS: hydrALAZINE 100 MG TAB PO SCH ×3 (08:30→20:30)
--- NOTE | 2021-02-26 09:25 | Progress Note ---
Assessment and Plan This is a 50 year old woman who presents with nausea/vomiting, pain # ESRD: usually HD MWF, hold HD today given stable labs and volume status. Plan for next HD tomorrow to resume usual schedule for toxin clearance - daily labs - renally dose meds - avoid nephrotoxins - renal diet # Mild Hyponatremia: adjust dialysate prn, likely not contributing to acute symptoms # Anemia: last hemoglobin 9.7->9.0, ESAs with HD prn # HTN: UF as tolerated. BP high this AM # Secondary Hyperparathyroidism: continue home binders as needed # Nausea/vomiting: suspect less likely related to uremia as she has been compliant with HD and current BUN of 14. Appreciate GI consult, note plans for endoscopy today Subjective Date of service: 02/26/21 Interval history: Continues to have nausea but notes feeling better than yesterday, no dyspnea, edema of concern Objective - Exam Narrative Exam: Constitutional: no acute distress Head: NC/AT Neck: supple Lungs: clear to auscultation CV: RRR, no M/R/G Abdomen: soft, non-tender, bowel sounds present Back: nontender Extremities: no edema, pulses WNL, CVC noted Skin: intact Neuro: no focal deficits, alert and oriented x4 - Vital Signs Vital signs: Vital Signs - 12hr 02/25/21 02/26/21 02/26/21 23:10 00:49 00:55 Temperature 98.6 F Pulse Rate 104 H 104 H Respiratory 16 18 Rate Blood Pressure 168/92 168/92 O2 Sat by Pulse 95 Oximetry 02/26/21 02/26/21 02/26/21 03:04 05:51 07:44 Temperature 97.7 F 98.0 F Pulse Rate 99 H 99 H Respiratory 16 20 20 Rate Blood Pressure 165/88 175/94 O2 Sat by Pulse 98 100 Oximetry - Lab 02/26/21 04:22 02/26/21 04:22 Most recent lab results Calcium 8.4 mg/dL (8.4-10.2) 02/26/21 04:22 Medications & Allergies - Medications Allergies/Adverse Reactions: Allergies Penicillins Allergy (Verified 02/25/21 02:30) Swelling Active Medications: Generic Name Dose Route Start Last Admin Trade Name Freq PRN Reason Stop Dose Admin Acetaminophen 650 mg 02/25/21 05:06 Acetaminophen 325 Mg Tab PO Q4H PRN Pain MILD(1-3)/Fever >100.5/DE LEÓN Al Hydrox/Mg Hydrox/Simethicone 30 ml 02/25/21 05:06 Alum-Mag Hydroxide-Simethicone [id number]/5ml Oral Liqd 30 Ml PO Q4H PRN Indigestion Amlodipine Besylate 10 mg 02/25/21 10:00 02/25/21 09:33 Amlodipine 10 Mg Tab PO 10 mg QDAY LILI Administration Ferrous Sulfate 325 mg 02/25/21 10:00 02/25/21 09:34 Ferrous Sulfate 325 Mg Tab PO 325 mg QDAY LILI Administration Heparin Sodium (Porcine) 5,000 unit 02/25/21 10:00 02/25/21 21:12 Heparin 5,000 Unit/1 Ml Vial SUB-Q 5,000 unit Q12HR LILI Administration Hydralazine HCl 5 mg 02/25/21 06:30 02/26/21 00:55 Hydralazine 20 Mg/1 Ml Inj IV 5 mg Q4HR PRN Administration SBP >/=160; DBP >/=100 Hydralazine HCl 100 mg 02/25/21 08:00 02/25/21 19:51 Hydralazine 100 Mg Tab PO 100 mg TID LILI Administration Sodium Chloride 100 mls @ 999 mls/hr 02/25/21 09:30 Nacl 0.9% IV RANDY PRN Hypotension Magnesium Hydroxide 30 ml 02/25/21 05:06 Magnesium Hydroxide (Mom) Oral Liqd Udc PO Q4H PRN Constipation Metoclopramide HCl 10 mg 02/25/21 15:00 02/26/21 00:47 Metoclopramide 10 Mg/2 Ml Inj IV 10 mg Q6H PRN Administration Nausea And Vomiting Morphine Sulfate 2 mg 02/25/21 06:26 02/26/21 05:51 Morphine 2 Mg/1 Ml Inj IV 2 mg Q4H PRN Administration Chest Pain unrelieved by NTG Multivitamins 1 each 02/25/21 10:00 02/25/21 09:34 Multivitamins ,Therapeutic Tab PO Not Given QDAY [facility] Ondansetron HCl 4 mg 02/25/21 05:06 02/25/21 19:46 Ondansetron 4 Mg/2 Ml Inj IV 4 mg Q8H PRN Administration Nausea And Vomiting Oxycodone/Acetaminophen 1 tab 02/25/21 06:26 Oxycodone /Acetaminophen 5-325mg Tab PO Q6H PRN Pain, Moderate (4-6) Pantoprazole Sodium 40 mg 02/25/21 22:00 02/25/21 21:12 Pantoprazole 40 Mg Tab PO 40 mg BID LILI Administration Senna 8.6 mg 02/25/21 06:30 Sennosides 8.6 Mg Tab PO Q12HR PRN Constipation Sodium Chloride 10 ml 02/25/21 10:00 02/25/21 21:12 Sodium Chloride 0.9% 10 Ml Flush Syringe IV 10 ml BID LILI Administration Sodium Chloride 10 ml 02/25/21 05:06 02/26/21 05:54 Sodium Chloride 0.9% 10 Ml Flush Syringe IV 10 ml PRN PRN Administration LINE FLUSH Trazodone HCl 50 mg 02/25/21 06:34 Trazodone 50 Mg Tab PO QHS PRN Insomnia
[2021-02-26] MEDS: oxyCODONE /ACETAMINOPHEN 5-325MG TAB PO PRN ×2 (09:30→16:40)
[2021-02-26] MEDS: ONDANSETRON 4 MG/2 ML INJ IV PRN ×2 (10:00→18:16)
[2021-02-26] MEDS: HEPARIN 5,000 UNIT/1 ML VIAL SUB-Q SCH ×2 (10:00→21:41)
--- NOTE | 2021-02-26 10:20 | Progress Note ---
Assessment and Plan Assessment and plan: Intractable nausea and vomiting ESRD on hemodialysis Generalized pain Hypertension Anemia of chronic disease 02/25/2021. GI consultation pending for intractable nausea and vomiting. 02/26/2021. Patient reports that her nausea vomiting has improved. GI considering upper endoscopy for further evaluation. Continue PPI twice daily. History Interval history: No new issues since admission Hospitalist Physical - Constitutional Vitals: Temp Pulse Resp BP Pulse Ox 98.0 F 99 H 20 175/94 100 02/26/21 07:44 02/26/21 09:53 02/26/21 07:44 02/26/21 09:53 02/26/21 07:44 General appearance: Present: mild distress, cachectic - EENT Eyes: Present: PERRL, EOM intact ENT: hearing intact, clear oral mucosa, dentition normal - Neck Neck: Present: supple, normal ROM - Respiratory Respiratory effort: normal Respiratory: bilateral: CTA - Cardiovascular Rhythm: regular Heart Sounds: Present: S1 & S2. Absent: gallop, rub - Extremities Extremities: no ischemia, No edema, Full ROM - Abdominal General gastrointestinal: soft, non-tender, non-distended, normal bowel sounds - Integumentary Integumentary: Present: clear, warm, dry - Neurologic Neurologic: CNII-XII intact, moves all extremities HEART Score - HEART Score Troponin: Troponin T 0.162 ng/mL (0.00-0.029) H* 02/25/21 05:44 Results - Labs CBC & Chem 7: 02/26/21 04:22 02/26/21 04:22 Labs: Laboratory Last Values WBC 3.8 K/mm3 (4.5-11.0) L 02/26/21 04:22 RBC 3.39 M/mm3 (3.65-5.03) L 02/26/21 04:22 Hgb 9.0 gm/dl (10.1-14.3) L 02/26/21 04:22 Hct 28.4 % (30.3-42.9) L 02/26/21 04:22 MCV 84 fl (79-97) 02/26/21 04:22 MCH 27 pg (28-32) L 02/26/21 04:22 MCHC 32 % (30-34) 02/26/21 04:22 RDW 18.5 % (13.2-15.2) H 02/26/21 04:22 Plt Count 371 K/mm3 (140-440) 02/26/21 04:22 Lymph % (Auto) 40.7 % (13.4-35.0) H 02/26/21 04:22 [place] % (Auto) 13.3 % (0.0-7.3) H 02/26/21 04:22 Eos % (Auto) 1.0 % (0.0-4.3) 02/26/21 04:22 Baso % (Auto) 0.6 % (0.0-1.8) 02/26/21 04:22 Lymph # (Auto) 1.6 K/mm3 (1.2-5.4) 02/26/21 04:22 [place] # (Auto) 0.5 K/mm3 (0.0-0.8) 02/26/21 04:22 Eos # (Auto) 0.0 K/mm3 (0.0-0.4) 02/26/21 04:22 Baso # (Auto) 0.0 K/mm3 (0.0-0.1) 02/26/21 04:22 Add Manual Diff Complete 02/25/21 03:00 Seg Neutrophils % 44.4 % (40.0-70.0) 02/26/21 04:22 Nucleated RBC % Not Reportable 02/25/21 03:00 Seg Neutrophils # 1.7 K/mm3 (1.8-7.7) L 02/26/21 04:22 WBC Morphology Not Reportable 02/25/21 03:00 Hypersegmented Neuts Not Reportable 02/25/21 03:00 Hyposegmented Neuts Not Reportable 02/25/21 03:00 Hypogranular Neuts Not Reportable 02/25/21 03:00 Smudge Cells Not Reportable 02/25/21 03:00 Toxic Granulation Not Reportable 02/25/21 03:00 Toxic Vacuolation Not Reportable 02/25/21 03:00 Dohle Bodies Not Reportable 02/25/21 03:00 Pelger-Huet Anomaly Not Reportable 02/25/21 03:00 Lee Rods Not Reportable 02/25/21 03:00 Platelet Estimate Not Reportable 02/25/21 03:00 Clumped Platelets Not Reportable 02/25/21 03:00 Plt Clumps, EDTA Not Reportable 02/25/21 03:00 Large Platelets Not Reportable 02/25/21 03:00 Giant Platelets Not Reportable 02/25/21 03:00 Platelet Satelliting Not Reportable 02/25/21 03:00 Plt Morphology Comment Not Reportable 02/25/21 03:00 RBC Morphology Not Reportable 02/25/21 03:00 Dimorphic RBCs Not Reportable 02/25/21 03:00 Polychromasia Not Reportable 02/25/21 03:00 Hypochromasia Not Reportable 02/25/21 03:00 Poikilocytosis Not Reportable 02/25/21 03:00 Anisocytosis Not Reportable 02/25/21 03:00 Microcytosis Not Reportable 02/25/21 03:00 Macrocytosis Not Reportable 02/25/21 03:00 Spherocytes Not Reportable 02/25/21 03:00 Pappenheimer Bodies Not Reportable 02/25/21 03:00 Sickle Cells Not Reportable 02/25/21 03:00 Target Cells Not Reportable 02/25/21 03:00 Tear Drop Cells Not Reportable 02/25/21 03:00 Ovalocytes Not Reportable 02/25/21 03:00 Helmet Cells Not Reportable 02/25/21 03:00 [place] Bodies Not Reportable 02/25/21 03:00 [place] Rings Not Reportable 02/25/21 03:00 [place] Cells Not Reportable 02/25/21 03:00 Bite Cells Not Reportable 02/25/21 03:00 Crenated Cell Not Reportable 02/25/21 03:00 Elliptocytes Not Reportable 02/25/21 03:00 Acanthocytes (Spur) Not Reportable 02/25/21 03:00 Rouleaux Not Reportable 02/25/21 03:00 Hemoglobin C Crystals Not Reportable 02/25/21 03:00 Schistocytes Not Reportable 02/25/21 03:00 Malaria parasites Not Reportable 02/25/21 03:00 Myke Bodies Not Reportable 02/25/21 03:00 Hem Pathologist Commnt Not Reportable 02/25/21 03:00 Sodium 131 mmol/L (137-145) L 02/26/21 04:22 Potassium 3.9 mmol/L (3.6-5.0) 02/26/21 04:22 Chloride 98.8 mmol/L (98-107) 02/26/21 04:22 Carbon Dioxide 23 mmol/L (22-30) 02/26/21 04:22 Anion Gap 13 mmol/L 02/26/21 04:22 BUN 14 mg/dL (7-17) 02/26/21 04:22 Creatinine 3.4 mg/dL (0.6-1.2) H 02/26/21 04:22 Estimated GFR 17 ml/min 02/26/21 04:22 BUN/Creatinine Ratio 4 % 02/26/21 04:22 Glucose 86 mg/dL (65-100) 02/26/21 04:22 Hemoglobin A1c 4.5 % (4-6) 02/25/21 05:44 Calcium 8.4 mg/dL (8.4-10.2) 02/26/21 04:22 Total Bilirubin 0.20 mg/dL (0.1-1.2) 02/26/21 04:22 AST 27 units/L (5-40) 02/26/21 04:22 ALT < 5 units/L (7-56) L 02/26/21 04:22 Alkaline Phosphatase 108 units/L (35-129) 02/26/21 04:22 Troponin T 0.162 ng/mL (0.00-0.029) H* 02/25/21 05:44 Total Protein 7.5 g/dL (6.3-8.2) 02/26/21 04:22 Albumin 2.8 g/dL (3.9-5) L 02/26/21 04:22 Albumin/Globulin Ratio 0.6 % 02/26/21 04:22 Triglycerides 125 mg/dL (2-149) 02/25/21 03:00 Cholesterol 195 mg/dL (50-199) 02/25/21 03:00 LDL Cholesterol Direct 106 mg/dL (50-130) 02/25/21 03:00 HDL Cholesterol 70 mg/dL (40-59) H 02/25/21 03:00 Cholesterol/HDL Ratio 2.78 % 02/25/21 03:00 [place]/IV: Voiding Method Toilet Active Medications - Current Medications Current Medications: Generic Name Dose Route Start Last Admin Trade Name Freq PRN Reason Stop Dose Admin Acetaminophen 650 mg 02/25/21 05:06 Acetaminophen 325 Mg Tab PO Q4H PRN Pain MILD(1-3)/Fever >100.5/DE LEÓN Al Hydrox/Mg Hydrox/Simethicone 30 ml 02/25/21 05:06 Alum-Mag Hydroxide-Simethicone [id number]/5ml Oral Liqd 30 Ml PO Q4H PRN Indigestion Amlodipine Besylate 10 mg 02/25/21 10:00 02/25/21 09:33 Amlodipine 10 Mg Tab PO 10 mg QDAY LILI Administration Ferrous Sulfate 325 mg 02/25/21 10:00 02/25/21 09:34 Ferrous Sulfate 325 Mg Tab PO 325 mg QDAY LILI Administration Heparin Sodium (Porcine) 5,000 unit 02/25/21 10:00 02/25/21 21:12 Heparin 5,000 Unit/1 Ml Vial SUB-Q 5,000 unit Q12HR LILI Administration Hydralazine HCl 5 mg 02/25/21 06:30 02/26/21 09:53 Hydralazine 20 Mg/1 Ml Inj IV 5 mg Q4HR PRN Administration SBP >/=160; DBP >/=100 Hydralazine HCl 100 mg 02/25/21 08:00 02/26/21 08:30 Hydralazine 100 Mg Tab PO Not Given TID LILI Sodium Chloride 100 mls @ 999 mls/hr 02/25/21 09:30 Nacl 0.9% IV RANDY PRN Hypotension Sodium Chloride 1,000 mls @ 50 mls/hr 02/26/21 10:15 Nacl 0.9% 1000 Ml IV DIRECT LILI Magnesium Hydroxide 30 ml 02/25/21 05:06 Magnesium Hydroxide (Mom) Oral Liqd Udc PO Q4H PRN Constipation Metoclopramide HCl 10 mg 02/25/21 15:00 02/26/21 00:47 Metoclopramide 10 Mg/2 Ml Inj IV 10 mg Q6H PRN Administration Nausea And Vomiting Morphine Sulfate 2 mg 02/25/21 06:26 02/26/21 09:54 Morphine 2 Mg/1 Ml Inj IV 2 mg Q4H PRN Administration Chest Pain unrelieved by NTG Multivitamins 1 each 02/25/21 10:00 02/25/21 09:34 Multivitamins ,Therapeutic Tab PO Not Given QDAY LILI Ondansetron HCl 4 mg 02/25/21 05:06 02/26/21 10:00 Ondansetron 4 Mg/2 Ml Inj IV 4 mg Q8H PRN Administration Nausea And Vomiting Oxycodone/Acetaminophen 1 tab 02/25/21 06:26 Oxycodone /Acetaminophen 5-325mg Tab PO Q6H PRN Pain, Moderate (4-6) Pantoprazole Sodium 40 mg 02/25/21 22:00 02/25/21 21:12 Pantoprazole 40 Mg Tab PO 40 mg BID LILI Administration Senna 8.6 mg 02/25/21 06:30 Sennosides 8.6 Mg Tab PO Q12HR PRN Constipation Sodium Chloride 10 ml 02/25/21 10:00 02/25/21 21:12 Sodium Chloride 0.9% 10 Ml Flush Syringe IV 10 ml BID LILI Administration Sodium Chloride 10 ml 02/25/21 05:06 02/26/21 05:54 Sodium Chloride 0.9% 10 Ml Flush Syringe IV 10 ml PRN PRN Administration LINE FLUSH Trazodone HCl 50 mg 02/25/21 06:34 Trazodone 50 Mg Tab PO QHS PRN Insomnia
[2021-02-26] MEDS ORDERED: SODIUM CHLORIDE 0.9% 1000 ML 1,000 ML IV SCH (11:00)
[2021-02-26] MEDS ORDERED: ONDANSETRON 4 MG/2 ML INJ ONE (13:36)
[2021-02-26] MEDS ORDERED: LIDOCAINE MPF (2%) 20 MG/1 ML VIAL 5 ML ONE (13:36)
[2021-02-26] MEDS ORDERED: fentaNYL 100 MCG/2 ML INJ ONE (13:36)
[2021-02-26] MEDS ORDERED: propofoL 200 MG/20 ML VIAL IV ONE (13:36)
--- NOTE | 2021-02-26 13:55 | Operative Report ---
Operative Report Operative Report: DOS: 02/26/21 SURGEON: Eliazar Jimenes MD EGD WITH BIOPSY REPORT PREOPERATIVE DIAGNOSIS and POSTOPERATIVE DIAGNOSIS: Nausea vomiting abnormal CAT scan of the abdomen ESTIMATED BLOOD LOSS: Minimal DESCRIPTION OF PROCEDURE: A high-resolution EGD scope was passed through the oropharynx, esophagus, stomach, and second portion of duodenum. The scope was carefully withdrawn. Retroflexion was performed in the stomach. At the end of the procedure, the scope was cleaned using normal technique. Vital signs monitor ed continuously throughout. SEDATION: Provided by Anest[facility]iology Services. COMPLICATIONS: None. FINDINGS: * Normal second portion of the duodenum * Mild duodenitis of the duodenal bulb with localized erythema * Severe gastritis of the gastric body and fundus with edema and erythema. Biopsies were taken to rule out H. Pylori infection. A total of 5 biopsies were taken, 2 from the antrum, 1 from the incisura, 2 from the body. * Of note, there were no gastric ulcers no evidence for gastric malignancy * Z-line irregular at 39 cm from incisors * Remainder of exam was unremarkable RECOMMENDATIONS: Follow-up pathology results Continue twice daily pantoprazole and antiemetic medication and avoidance of NSAIDs I will start patient on a clear liquid diet, recommend advancing gradually as tolerated If patient symptoms are controlled and she can tolerate diet then can be discharged with outpatient follow GI will sign off please call back if we can be of any further assistance
[2021-02-26] MEDS ORDERED: HYDROmorphone 1 MG/1 ML INJ IV ONE (14:10)
--- NOTE | 2021-02-26 15:42 | Post Anesthesia Evaluation ---
- Post Anesthesia Evaluation Patient Participated: Yes Airway Patent: Yes Stable Respiratory Function: Yes Nausea/Vomiting: No Temp > 96.8F: Yes Pain Manageable: Yes Adequeate Hydration: Yes Anesthesia Complications: No
--- NOTE | 2021-02-26 15:42 | Anesthesia Day of Surgery ---
Anesthesia Day of Surgery - Day of Surgery Patient Examined: Yes Patient H&P Reviewed: Yes Patient is NPO: Yes
--- NOTE | 2021-02-26 15:42 | Anesthesia Consultation ---
Anesthesia Consult and Med Hx Date of service: 02/26/21 - Airway Anesthetic Teeth Evaluation: Good ROM Head & Neck: Adequate Mental/Hyoid Distance: Adequate Mallampati Class: Class III Intubation Access Assessment: Possibly Difficult - Pre-Operative Health Status ASA Pre-Surgery Classification: ASA3 Proposed Anesthetic Plan: MAC - Pulmonary Hx Respiratory Symptoms: No - Cardiovascular System Hx Hypertension: Yes - Endocrine Hx End Stage Renal Disease: Yes Hx Liver Disease: No Hx Insulin Dependent Diabetes: No Hx Non-Insulin Dependent Diabetes: No - Hematic Hx Anemia: Yes
[2021-02-26] MEDS: FERROUS SULFATE 325 MG TAB PO SCH ×2 (17:09→19:02)
[2021-02-26] MEDS: PANTOPRAZOLE 40 MG TAB PO SCH ×2 (17:09→21:41)
[2021-02-26] MEDS: amLODIPine 10 MG TAB PO SCH (17:10)
[2021-02-26] MEDS: MULTIVITAMINS ,THERAPEUTIC TAB PO SCH ×2 (17:10→19:02)
[2021-02-27] MEDS: ONDANSETRON 4 MG/2 ML INJ IV PRN (02:29)
[2021-02-27] MEDS: MORPHINE 2 MG/1 ML INJ IV PRN ×4 (02:29→18:24)
[2021-02-27] MEDS: METOCLOPRAMIDE 10 MG/2 ML INJ IV PRN ×3 (06:30→18:24)
[2021-02-27] MEDS: oxyCODONE /ACETAMINOPHEN 5-325MG TAB PO PRN ×2 (08:05→13:30)
--- NOTE | 2021-02-27 08:26 | Discharge Summary ---
Providers - Providers Date of Admission: 02/25/21 16:30 Date of discharge: 02/27/21 Attending physician: [place] GARCIA 02/25/21 05:08 Consult to Physician [CONS] Stat Comment: Consulting Provider: EMILY CALDERÓN Physician Instructions: Reason For Exam: ESRD 02/25/21 08:21 Consult to Physician [CONS] Routine Comment: Consulting Provider: LETTY CONSTANTINO Physician Instructions: Reason For Exam: Intractable nausea and vomiting Primary care physician: [employer]CE[employer] ALIGNER Hospitalization Reason for admission: Intractable nausea and vomiting Condition: Stable Hospital course: This is a pleasant 50-year-old female, medical history as below, who presents with nausea and vomiting. She reports having severe nausea and vomiting since starting dialysis around November of this year. Intractable, no alleviating factors worse with dialysis and eating, constant, daily, stable, duration months. The patient was admitted with diagnosis of abdominal pain, intractable nausea and vomiting and anemia. Given severity of the patient's symptoms coupled with her anemia and multiple abnormal CAT scans indicating gastric pathology, inpatient EGD for further evaluation was recommended by GI. Endoscopic findings: Normal second portion of the duodenum * Mild duodenitis of the duodenal bulb with localized erythema * Severe gastritis of the gastric body and fundus with edema and erythema. Biopsies were taken to rule out H. Pylori infection. A total of 5 biopsies were taken, 2 from the antrum, 1 from the incisura, 2 from the body. * Of note, there were no gastric ulcers no evidence for gastric malignancy * Z-line irregular at 39 cm from incisors * Remainder of exam was unremarkable GI recommendations included Follow-up pathology results Continue twice daily pantoprazole and antiemetic medication and avoidance of NSAIDs Patient was started on clear liquid diet and advanced which she tolerated. Therefore, patient was felt to receive maximal hospital benefit and will be discharged home. Dedicated discharge time 35 minutes Disposition: [id number] TO HOME OR SELFCARE Final Discharge Diagnosis (Prints w/discharge instructions): Duodenitis, severe gastritis Core Measure Documentation - Palliative Care Palliative Care/ Comfort Measures: Not Applicable - Core Measures Any of the following diagnoses?: none Exam - Constitutional Vitals: Temp Pulse Resp BP Pulse Ox 98.5 F 105 H 20 157/85 95 02/27/21 08:07 02/27/21 08:07 02/27/21 08:07 02/27/21 08:07 02/27/21 08:07 General appearance: Present: no acute distress, well-nourished - EENT Eyes: Present: PERRL ENT: hearing intact, clear oral mucosa - Neck Neck: Present: supple, normal ROM - Respiratory Respiratory effort: normal Respiratory: bilateral: CTA - Cardiovascular Heart Sounds: Present: S1 & S2. Absent: rub, click - Extremities Extremities: pulses symmetrical, No edema Peripheral Pulses: within normal limits - Abdominal General gastrointestinal: Present: soft, non-tender, non-distended, normal bowel sounds Female genitourinary: Present: normal - Integumentary Integumentary: Present: clear, warm, dry - Musculoskeletal Musculoskeletal: gait normal, strength equal bilaterally - Psychiatric Psychiatric: appropriate mood/affect, intact judgment & insight - Neurologic Neurologic: CNII-XII intact, moves all extremities Plan Activity: advance as tolerated Weight Bearing Status: Weight Bear as Tolerated Follow up with: PRIMARY CAREMD [Primary Care Provider] - 7 Days NIESHA RAMOS MD [Staff Physician] - 7 Days Prescriptions: oxyCODONE /ACETAMINOPHEN [Percocet 5/325 mg] 1 tab PO Q6H PRN #8 tablet PRN Reason: Pain, Moderate (4-6) Pantoprazole [Protonix TAB] 40 mg PO BID #60 tablet
[2021-02-27] MEDS: hydrALAZINE 100 MG TAB PO SCH ×2 (08:35→13:50)
[2021-02-27 08:53] LABS: Calcium 8.4 mg/dL (8.4-10.2)
[2021-02-27] MEDS: PANTOPRAZOLE 40 MG TAB PO SCH (09:24)
[2021-02-27] MEDS: HEPARIN 5,000 UNIT/1 ML VIAL SUB-Q SCH (09:24)
[2021-02-27] MEDS: amLODIPine 10 MG TAB PO SCH (09:24)
[2021-02-27] MEDS: FERROUS SULFATE 325 MG TAB PO SCH (09:24)
[2021-02-27] MEDS: MULTIVITAMINS ,THERAPEUTIC TAB PO SCH (09:27)
[2021-02-27] MEDS ORDERED: SODIUM CHLORIDE 0.9% 100 ML IV PRN (13:18)
[2021-02-27 16:21] LABS: Hepatitis B Surface Antigen Non-Reactive (Negative); Hepatitis C Virus Antibody Reactive (NonReactive)
[2021-02-27 17:52] VITALS: BP 174/94
--- NOTE | 2021-02-27 18:38 | Progress Note ---
Assessment and Plan This is a 50 year old woman who presents with nausea/vomiting, pain # ESRD: usually HD MWF, held last session, HD today to resume usual schedule for toxin clearance - daily labs - renally dose meds - avoid nephrotoxins - renal diet # Mild Hyponatremia: adjust dialysate prn, likely not contributing to acute symptoms # Anemia: last hemoglobin 9.7->9.0, ESAs with HD prn # HTN: UF as tolerated. BP remains high # Secondary Hyperparathyroidism: continue home binders as needed # Nausea/vomiting: s/p endoscopy, appreciate GI input Subjective Date of service: 02/27/21 Interval history: Feeling better today, ready for dialysis Objective - Exam Narrative Exam: Constitutional: no acute distress Head: NC/AT Neck: supple Lungs: clear to auscultation CV: RRR, no M/R/G Abdomen: soft, non-tender, bowel sounds present Back: nontender Extremities: no edema, pulses WNL, CVC noted Skin: intact Neuro: no focal deficits, alert and oriented x4 - Vital Signs Vital signs: Vital Signs - 12hr 02/27/21 02/27/21 02/27/21 08:07 13:00 13:45 Temperature 98.5 F 98.3 F Pulse Rate 105 H 105 H 100 H Respiratory 20 20 Rate Blood Pressure 157/85 149/87 O2 Sat by Pulse 95 Oximetry O2 Sat by Pulse 100 Oximetry [ Anterior Bilateral Throughout] 02/27/21 02/27/21 02/27/21 13:48 14:00 14:15 Temperature Pulse Rate 99 H 96 H 96 H Respiratory Rate Blood Pressure 155/85 146/88 148/86 O2 Sat by Pulse Oximetry O2 Sat by Pulse Oximetry [ Anterior Bilateral Throughout] 02/27/21 02/27/21 02/27/21 14:30 14:45 15:00 Temperature Pulse Rate 99 H 97 H 96 H Respiratory Rate Blood Pressure 153/85 153/90 146/87 O2 Sat by Pulse Oximetry O2 Sat by Pulse Oximetry [ Anterior Bilateral Throughout] 02/27/21 02/27/21 02/27/21 15:15 15:30 15:45 Temperature Pulse Rate 94 H 96 H 93 H Respiratory Rate Blood Pressure 158/83 150/84 153/83 O2 Sat by Pulse Oximetry O2 Sat by Pulse Oximetry [ Anterior Bilateral Throughout] 02/27/21 02/27/2102/27/21 16:00 16:15 16:30 Temperature Pulse Rate 94 H 92 H 96 H Respiratory Rate Blood Pressure 152/84 154/85 158/92 O2 Sat by Pulse Oximetry O2 Sat by Pulse Oximetry [ Anterior Bilateral Throughout] 02/27/21 02/27/21 02/27/21 16:45 17:00 17:15 Temperature Pulse Rate 95 H 92 H 93 H Respiratory Rate Blood Pressure 165/93 164/87 152/91 O2 Sat by Pulse Oximetry O2 Sat by Pulse Oximetry [ Anterior Bilateral Throughout] 02/27/21 17:30 Temperature 98.2 F Pulse Rate 98 H Respiratory 18 Rate Blood Pressure 174/94 O2 Sat by Pulse Oximetry O2 Sat by Pulse 100 Oximetry [ Anterior Bilateral Throughout] - Lab 02/26/21 04:22 02/27/21 07:41 Most recent lab results Calcium 8.4 mg/dL (8.4-10.2) 02/27/21 07:41 Medications & Allergies - Medications Allergies/Adverse Reactions: Allergies Penicillins Allergy (Verified 02/25/21 02:30) Swelling Home Medications: Home Medications Medication Instructions Recorded Confirmed Last Taken Type Ferrous Sulfate [Feosol 325 MG tab] 325 mg PO QDAY tablet 02/27/21 Unknown Rx Pantoprazole [Protonix TAB] 40 mg PO BID #60 tablet 02/27/21 Unknown Rx amLODIPine 10 mg PO QDAY tablet 02/27/21 Unknown Rx oxyCODONE /ACETAMINOPHEN [Percocet 1 tab PO Q6H PRN #8 tablet 02/27/21 Unknown Rx 5/325 mg] Active Medications: Generic Name Dose Route Start Last Admin Trade Name Freq PRN Reason Stop Dose Admin Acetaminophen 650 mg 02/25/21 05:06 Acetaminophen 325 Mg Tab PO Q4H PRN Pain MILD(1-3)/Fever >100.5/DE LEÓN Al Hydrox/Mg Hydrox/Simethicone 30 ml 02/25/21 05:06 Alum-Mag Hydroxide-Simethicone 621-745-18th/5ml Oral Liqd 30 Ml PO Q4H PRN Indigestion Amlodipine Besylate 10 mg 02/25/21 10:00 02/27/21 09:24 Amlodipine 10 Mg Tab PO 10 mg QDAY LILI Administration Ferrous Sulfate 325 mg 02/25/21 10:00 02/27/21 09:24 Ferrous Sulfate 325 Mg Tab PO Not Given QDAY [facility] Heparin Sodium (Porcine) 5,000 unit 02/25/21 10:00 02/27/21 09:24 Heparin 5,000 Unit/1 Ml Vial SUB-Q 5,000 unit Q12HR LILI Administration Hydralazine HCl 5 mg 02/25/21 06:30 02/26/21 14:17 Hydralazine 20 Mg/1 Ml Inj IV 5 mg Q4HR PRN Administration SBP >/=160; DBP >/=100 Hydralazine HCl 100 mg 02/25/21 08:00 02/27/21 13:50 Hydralazine 100 Mg Tab PO Not Given TID [facility] Sodium Chloride 100 mls @ 999 mls/hr 02/25/21 09:30 Nacl 0.9% IV RANDY PRN Hypotension Sodium Chloride 1,000 mls @ 50 mls/hr 02/26/21 11:00 Nacl 0.9% 1000 Ml IV DIRECT LILI Magnesium Hydroxide 30 ml 02/25/21 05:06 02/26/21 18:15 Magnesium Hydroxide (Mom) Oral Liqd Udc PO 30 ml Q4H PRN Administration Constipation Metoclopramide HCl 10 mg 02/25/21 15:00 02/27/21 18:24 Metoclopramide 10 Mg/2 Ml Inj IV 10 mg Q6H PRN Administration Nausea And Vomiting Morphine Sulfate 2 mg 02/25/21 06:26 02/27/21 18:24 Morphine 2 Mg/1 Ml Inj IV 2 mg Q4H PRN Administration Chest Pain unrelieved by NTG Multivitamins 1 each 02/25/21 10:00 02/27/21 09:27 Multivitamins ,Therapeutic Tab PO Not Given QDAY [facility] Ondansetron HCl 4 mg 02/25/21 05:06 02/27/21 02:29 Ondansetron 4 Mg/2 Ml Inj IV 4 mg Q8H PRN Administration Nausea And Vomiting Oxycodone/Acetaminophen 1 tab 02/25/21 06:26 02/27/21 08:05 Oxycodone /Acetaminophen 5-325mg Tab PO 1 tab Q6H PRN Administration Pain, Moderate (4-6) Pantoprazole Sodium 40 mg 02/25/21 22:00 02/27/21 09:24 Pantoprazole 40 Mg Tab PO 40 mg BID LILI Administration Senna 8.6 mg 02/25/21 06:30 Sennosides 8.6 Mg Tab PO Q12HR PRN Constipation Sodium Chloride 10 ml 02/25/21 10:00 02/27/21 09:24 Sodium Chloride 0.9% 10 Ml Flush Syringe IV 10 ml BID LILI Administration Sodium Chloride 10 ml 02/25/21 05:06 02/26/21 05:54 Sodium Chloride 0.9% 10 Ml Flush Syringe IV 10 ml PRN PRN Administration LINE FLUSH Trazodone HCl 50 mg 02/25/21 06:34 Trazodone 50 Mg Tab PO QHS PRN Insomnia
--- NOTE | 2021-03-05 10:49 | Electrocardiograph Report ---
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
--- NOTE | 2021-03-05 10:52 | Electrocardiograph Report ---
[facility] Test Date: 2021-02-25 Test Time: 07:55:06 Pat Name: DEBORAH BURDICK Department: Room: A469 Gender: F [employer] Bre[employer]: TANYA : 1970 Requested By: BENJAMIN RIVAS Order Number: [id number] Reading MD: Jolynn Valdovinos Measurements Intervals [place] Rate: 96 P: 79 ND: 139 QRS: 54 QRSD: 75 T: 71 QT: 394 QTc: 499 Interpretive Statements Sinus rhythm Anterior infarct, old Compared to ECG 02/25/2021 02:56:58 No significant change Electronically Signed On 03-05-2021 10:51:23 EDT by Jolynn Valdovinos
== END 2021-02-27 19:49 | disposition home or self-care (01) | DRG 391 ==
LOC: ED 02:24 → 4A 04:42 → OBSVTOIN 16:30
PROVIDERS: ADMIT Internal Medicine Geriatric Medicine; ATTEND Hospitalist
PROC: 0DB68ZX Excision of Stomach, Via Natural or Artificial Opening Endoscopic, Diagnostic (ICD-10-PCS; principal; 2021-02-26)
PROC: 5A1D70Z Performance of Urinary Filtration, Intermittent, Less than 6 Hours Per Day (ICD-10-PCS; 2021-02-27)
DX: K29.80 Duodenitis without bleeding (principal); N18.6 End stage renal disease; I13.2 Hypertensive heart and chronic kidney disease with heart failure and with stage 5 chronic kidney disease, or end stage renal disease; E87.1 Hypo-osmolality and hyponatremia; N25.81 Secondary hyperparathyroidism of renal origin; K29.70 Gastritis, unspecified, without bleeding; I50.9 Heart failure, unspecified; D63.1 Anemia in chronic kidney disease; Z99.2 Dependence on renal dialysis; Z82.49 Family history of ischemic heart disease and other diseases of the circulatory system; Z88.0 Allergy status to penicillin; Z87.442 Personal history of urinary calculi
CPT/HCPCS: 36415; 71045; 80048; 80053; 80061; 80074; 83036; 84484; 85007; 85025; 88305; 88342; 93005; 96374; 96375; G0378; J0360; J1170; J1644; J2270; J2405; J2704; J2765; J3010